=== PATIENT | male | born 1960 | race Caucasian/White ===

== ENCOUNTER → 2017-12-19 | Outpatient (CLI) | payer OTHER ==
[~2017-12-19] MED LIST: ALB18R IH; AMOX-559 PO; ATOR10TA65 PO; CELE100C79 PO; CHOLESTEROL MED; COLC0.6C3 PO; CYCL10TA29 PO; DICL100G7 TOP; GLUC-198 PO; HYDR-385 PO; LOR5/325 PO; LORA-802 PO; METH4TAB66 PO; MONT10TA PO; MULT1CAP59 PO; OMEG-11 PO; PNEI IM; TRAZ50TA34 PO; ZOLCR625PT PO; no routine meds
== END ==
LOC: LAB 09:58
PROVIDERS: ATTEND Nurse Practitioner Family
DX: R74.8 Abnormal levels of other serum enzymes (principal); M25.50 Pain in unspecified joint; M79.671 Pain in right foot; G72.9 Myopathy, unspecified
CPT/HCPCS: 36415; 82040; 82247; 82306; 82310; 82374; 82435; 82550; 82565; 82947; 84075; 84132; 84155; 84295; 84450; 84460; 84520; 85651; 86140; 86200; 86430

== ENCOUNTER → 2017-12-25 | Outpatient (CLI) | payer OTHER ==
--- NOTE | 2017-12-25 17:30 | RADIOLOGY IMAGING REPORT ---
FACILITY: [facility] PATIENT NAME: Louie Morales : 1960 MR: [id number] V: [id number] EXAM DATE: ORDERING PHYSICIAN: JOEL PICKETT TECHNOLOGIST: [facility] Patient: Louie Morales : 1960 Visit/Account:[id number] Date of Sevice: 12/25/2017 Exam type: FOOT 2 VIEW BILATERAL History: Bilateral hand and foot pain, no known injury Comparison: Right great toe November 24, 2013. Findings: Two views of both the right and left foot demonstrate no gross evidence of acute fracture or dislocat ion. There appears to be small spurs projecting along the medial aspect of the bases of both distal phalanges of the great toes. Old fracture deformity of the distal tuft of the distal fillings the ri ght great toe is present is a tiny right calcaneal spur IMPRESSION: 1. Old fracture deformity of the distal tuft distal phalanx of the right great toe Tiny right calcaneal spur No evidence of acute fractures or dislocations involving the feet Report Dictated By: Ninoska Wilcox MD at 12/25/2017 5:23 PM Report E-Signed By: Ninoska Wilcox MD at 12/25/2017 5:26 PM WSN:[email or web address]
--- NOTE | 2017-12-25 17:32 | RADIOLOGY IMAGING REPORT ---
FACILITY: [facility] PATIENT NAME: Louie Morales : 1960 MR: [id number]: [id number] EXAM DATE: ORDERING PHYSICIAN: JOEL PICKETT TECHNOLOGIST: Location: [facility] Patient: Louie Morales : 1960 Visit/Account:[id number] Date of Sevice: 12/25/2017 Exam type: HAND 1 OR 2 VIEW BILATERAL History: Hand pain bilateral, no known injury Comparison: None. Findings: Two views of the right and left hands demonstrate no evidence of acute fracture-dislocation or signif icant arthritic change. There is a tiny linear metallic foreign body projecting in the soft tissues of the left thumb just distal to the distal tuft of the distal phalanx. Also noted is a tiny metalli c foreign body projecting just dorsal to the base of the middle phalanx of the right third finger IMPRESSION: 1. No evidence of acute fracture-dislocation or significant arthritic change involving the hands Tiny metallic foreign body projects just dorsal to the base of the middle phalanx of the right third finger. A small metallic foreign body projects in the distal soft tissues of the left thumb Report Dictated By: Ninoska Wilcox MD at 12/25/2017 5:26 PM Report E-Signed By: Ninoska Wilcox MD at 12/25/2017 5:28 PM WSN:[email or web address]
== END ==
LOC: RAD 16:12
PROVIDERS: ATTEND Nurse Practitioner Family
DX: M77.31 Calcaneal spur, right foot (principal)